=== PATIENT | female | born 1970 | race Two or more races ===

== ENCOUNTER → 2020-04-12 | Outpatient (CLI) | payer OTHER ==
[2020-04-15 09:03] LABS: Hepatitis B Surface Antibody Negative
[2020-04-15 11:28] LABS: Hepatitis B Surface Antigen Negative (Negative)
== END | disposition home or self-care (01) ==
LOC: LAB 15:39
PROVIDERS: ATTEND Nurse Practitioner
DX: Z02.1 Encounter for pre-employment examination (principal)
CPT/HCPCS: 36415; 86703; 86706; 86803; 87340